=== PATIENT | female | born 1940 | race Caucasian/White ===

== ENCOUNTER 2016-05-16 10:58 | Outpatient (CLI) | payer MEDICARE, BC | END 2016-05-16 10:59 | disposition home or self-care (01) | DX: R73.01 Impaired fasting glucose (principal); Z79.899 Other long term (current) drug therapy; I10 Essential (primary) hypertension; E78.5 Hyperlipidemia, unspecified ==

== ENCOUNTER 2016-07-23 11:33 | Outpatient (CLI) | payer MEDICARE, BC ==
--- NOTE | 2016-07-24 17:40 | Mammography Report ---
DIGITAL SCREENING MAMMOGRAM: 07/23/2016 CLINICAL INDICATION: A 75-year-old for screening. COMPARISON: 05/2014, 11/2012, 11/2011, 11/2010, 10/2009, 01/2008. TECHNIQUE: Routine CC and MLO projections were obtained of the breasts. FINDINGS: Parenchymal tissue within the breasts is predominantly fatty replaced. There are no domina nt masses, suspicious microcalcifications, or secondary signs of malignancy. In comparison to the pre vious studies, there are no significant changes. IMPRESSION: NO MAMMOGRAPHIC EVIDENCE OF MALIGNANCY. NO SIGNIFICANT INTERVAL CHANGES. RECOMMENDATION: Screening mammography is recommended annually. BI-RADS category 1 - negative. STANDARD QUALIFYING STATEMENTS 1. This examination was reviewed with the aid of Computed-Aided Detection (CAD). 2. A negative or benign imaging report should not delay biopsy if clinically suspicious findings are present. Consider surgical consultation if warranted. More than 5% of cancers are not identified by i maging. 3. Dense breasts may obscure an underlying neoplasm. JOB #: [id number] EXT JOB #:[id number]
== END 2016-07-23 11:34 | disposition home or self-care (01) ==
LOC: DI 11:33
PROVIDERS: ATTEND Nurse Practitioner Primary Care
DX: Z12.31 Encounter for screening mammogram for malignant neoplasm of breast (principal)
CPT/HCPCS: 77067

== ENCOUNTER 2016-08-29 09:02 | Outpatient (CLI) | payer MEDICARE, BC | END 2016-08-29 09:03 | disposition home or self-care (01) | DX: M17.11 Unilateral primary osteoarthritis, right knee (principal); M11.261 Other chondrocalcinosis, right knee; M25.561 Pain in right knee ==

== ENCOUNTER 2016-09-04 09:17 | Outpatient (CLI) | payer MEDICARE, BC | END 2016-09-04 09:18 | disposition home or self-care (01) | DX: M11.20 Other chondrocalcinosis, unspecified site (principal); E83.42 Hypomagnesemia; M25.551 Pain in right hip ==

== ENCOUNTER 2016-09-04 09:44 | Outpatient (CLI) | payer MEDICARE, BC | END 2016-09-04 09:45 | disposition home or self-care (01) | DX: M71.20 Synovial cyst of popliteal space [Baker], unspecified knee (principal); M25.551 Pain in right hip; E83.42 Hypomagnesemia; M16.11 Unilateral primary osteoarthritis, right hip ==

== ENCOUNTER 2016-11-07 08:54 | Outpatient (CLI) | payer MEDICARE, BC ==
[2016-11-07] MEDS ORDERED: BUPIVACAINE 0.25% PF 10 ML VIAL SUBQ ONE (10:55)
[2016-11-07] MEDS ORDERED: IOTHALAMATE MEGLUMINE 50 ML VIAL IVP ONE (10:55)
[2016-11-07] MEDS ORDERED: BUFFERED LIDOCAINE 10 ML SYRINGE IU ONE (10:55)
[2016-11-07] MEDS ORDERED: methylPREDNISolone ACETATE 80 MG/ML VIAL IM ONE (10:55)
--- NOTE | 2016-11-07 12:19 | XRAY Report ---
FLUOROSCOPICALLY GUIDED RIGHT HIP INJECTION WITH STEROIDS: 11/07/2016 CLINICAL INDICATION: Right hip arthritis. FINDINGS: Following obtaining informed consent, the patient's right hip was prepped and draped in the usual sterile fashion. The skin and soft tissues were anesthetized with lidocaine. A spinal needle was inserted into the right hip joint, and following confirmation of needle positioning, 1 mL of 80 mg/mL of Depo-Medrol and 1 mL of 0.25% Marcaine were injected intraarticularly. The patient tolerated the procedure well. No immediate complications. IMPRESSION: SUCCESSFUL RIGHT HIP INJECTION WITH STEROIDS UNDER FLUOROSCOPY. FLUOROSCOPY TIME: 29 SECONDS; 1 SPOT IMAGE OBTAINED. JOB #: [id number] EXT JOB #: [id number] JENIFER
== END 2016-11-07 08:55 | disposition home or self-care (01) ==
LOC: DI 08:54
PROVIDERS: ATTEND Orthopaedic Surgery
DX: M16.11 Unilateral primary osteoarthritis, right hip (principal)
CPT/HCPCS: 20610; 77002; Q9961

== ENCOUNTER 2017-02-16 20:15 | Emergency (ER) | payer MEDICARE, BC ==
--- NOTE | 2017-02-16 20:50 | ED Physician Documentation ---
History of Present Illness - Stated complaint Stated Complaint: RIGHT LEG REDNESS - Chief complaint Chief Complaint: Ext Problem - History obtained from History obtained from: Patient, Family - History of Present Illness Timing: Today, How many hours ago (3) Pain level max: 3 Pain level now: 3 Improved by: nothing Worsened by: nothing - Additonal information Additional information: Patient is 4 days s/p R THR at [facility]. Tonight noticed redness to the lateral aspect of the R thigh. Review of Systems Constitutional: denies: Fever, Chills Cardiac: denies: Chest pain / pressure Respiratory: denies: Dyspnea GI: denies: Abdominal Pain, Nausea, Vomiting Skin: denies: Rash Musculoskeletal: denies: Neck pain, Back pain Neurologic: denies: Headache PD PAST MEDICAL HISTORY - Past Medical History Cardiovascular: Hypertension, High cholesterol Respiratory: None Neuro: None Endocrine/Autoimmune: None GI: GERD : None HEENT: None Psych: Claustrophobia Musculoskeletal: Osteoarthritis Derm: None - Past Surgical History Past Surgical History: Yes General: Colonoscopy Ortho: Knee replacement, Arthroscopic surgery, Carpal Tunnel surgery, Spine surgery, Other HEENT: Tonsil/Adenoidectomy - Present Medications Home Medications: Ambulatory Orders Medication Instructions Recorded Confirmed Aspirin EC [Ecotrin] 81 mg PO DAILY 02/09/13 02/16/17 Atorvastatin Calcium 20 mg PO QPM 02/09/13 02/16/17 Furosemide 20 mg PO QAM 02/09/13 02/16/17 Metoprolol Succinate [Toprol Xl] 25 mg PO QAM 02/09/13 02/16/17 Multivitamin [Multivitamins] 1 each PO QAM 02/09/13 02/16/17 Spironolactone [Aldactone] 25 mg PO BID 02/09/13 02/16/17 Vitamin B Complex 1 each PO QAM 02/09/13 02/16/17 cloNIDine [Catapres] 0.2 mg PO DAILY 02/09/13 02/16/17 Rivaroxaban [Xarelto] 10 mg PO DAILY 02/16/17 02/16/17 hydrOXYzine PAMOATE [Vistaril] 25 mg PO Q6HR 02/16/17 02/16/17 traMADol [Ultram] 50 mg PO Q6HR 02/16/17 02/16/17 - Allergies Allergies/Adverse Reactions: Allergies Allergy/AdvReac Type Severity Reaction Status Date / Time amlodipine besylate * Allergy Intermediate Edema Verified 02/16/13 02:41 [From Norvasc] hydrocodone [Hydrocodone] Allergy Unknown UNKNOWN Verified 02/16/13 02:41 isosorbide [Isosorbide] Allergy ANKLE Verified 02/16/13 02:41 SWELLING sulfisoxazole AdvReac Unknown Verified 02/08/16 09:15 [From Gantrisin] sulfisoxazole acetyl * AdvReac Unknown Verified 02/08/16 09:15 [From Gantrisin] - Social History Does the pt smoke?: No Smoking Status: Never smoker Does the pt drink ETOH?: No Does the pt have substance abuse?: No - Immunizations Immunizations are current?: Yes - POLST Patient has POLST: No PD ED PE NORMAL - Vitals Vital signs reviewed: Yes - General General: Alert and oriented X 3, No acute distress - Derm Derm: Warm and dry - Extremities Extremities: Other (R hip - Incision is clean dry and intact. No drainage. There is a little light pink areas around the incision and on the proximal aspect of the thigh. There is no warmth. No significant tenderness. Blanches easily.) - Neuro Neuro: Alert and oriented X 3 - Psych Psych: Normal mood, Normal affect Results - Vitals Vitals: Vital Signs - 24 hr 02/16/17 02/16/17 02/16/17 20:24 21:46 22:55 Temperature 37 C 37.1 C Heart Rate 101 H 74 82 Respiratory 18 16 18 Rate Blood Pressure 132/80 H 121/75 116/66 O2 Saturation 96 98 99 Oxygen O2 Source Room air - Labs Labs: Laboratory Tests 02/16/17 02/16/17 02/16/17 20:56 20:56 20:56 WBC 6.8 RBC 3.76 L Hgb 11.4 L Hct 34.0 L MCV 90.4 MCH 30.4 MCHC 33.6 RDW 13.5 Plt Count 253 MPV 8.5 Neut # 4.3 Lymph # 1.4 L Otero # 0.8 Eos # 0.2 Baso # 0.0 Absolute Nucleated RBC 0.00 Nucleated RBC % 0.0 ESR 119 H Sodium 135 Potassium 3.8 Chloride 99 L Carbon Dioxide 24 Anion Gap 12.0 BUN 13 Creatinine 0.8 Estimated GFR (MDRD) 70 L Glucose 126 H Calcium 8.6 C-Reactive Protein 19.3 H PD MEDICAL DECISION MAKING - ED course Complexity details: reviewed results, re-evaluated patient, considered differential, d/w patient, d/w family, d/w [facility] [place] consultant (Dr. Osborne ([facility]) [id number] - recommends follow up in clinic for wound check. No abx at this time. ) ED course: Patient is a 76-year-old female who is 4 days status post a right total hip replacement. Her incision is clean dry and intact without signs of infection. She does have a light pink redness to the proximal thigh, is not warm, is not tender. Does not appear consistent with cellulitis. Possible seroma underneath the soft tissue versus increasing use at home? Normal white count. Afebrile. Sed rate and CRP are both elevated, but may be related to her recent surgery. Discussed the case with orthopedics from [facility] and they will follow her up in the clinic. Do not want to start antibiotics at this time and I think this is reasonable in her case. Patient and family counseled regarding signs and symptoms for which I believe and urgent re-evaluation would be necessary. Patient with good understanding of and agreement to plan and is comfortable going home at this time This document was made in part using voice recognition software. While efforts are made to proofread this document, sound alike and grammatical errors may occur. Departure - Departure Disposition: 01 Home, Self Care Clinical Impression: Encounter for postoperative wound check Condition: Good Instructions: ED Wound Check Post Op No Infec Follow-Up: Gaudencio Tipton DO [Physician No Access] - Within 3 Days Comments: Call Dr. Tipton's office on Saturday for a wound check early next week. Return if you worsen. Discharge Date/Time: 02/16/17 22:56
[2017-02-16 21:04] LABS: BASOPHILS % (AUTO) 0.3 %; EOSINOPHILS # (AUTO) 0.2 10^3/uL (0.0-0.7); EOSINOPHILS % (AUTO) 2.5 %; HGB - HEMOGLOBIN 11.4 g/dL (12.0-16.0); LYMPHOCYTES # (AUTO) 1.4 10^3/uL (1.5-3.5); LYMPHOCYTES % (AUTO) 21.3 %; MEAN CORPUSCULAR HEMOGLOBIN 30.4 pg (27.0-31.0); MEAN CORPUSCULAR HGB CONC 33.6 g/dL (32.0-36.0); MEAN CORPUSCULAR VOLUME 90.4 fL (81.0-99.0); MEAN PLATELET VOLUME 8.5 fL (7.9-10.8); MONOCYTES # (AUTO) 0.8 10^3/uL (0.0-1.0); MONOCYTES % (AUTO) 12.3 %; NEUTROPHILS # (AUTO) 4.3 10^3/uL (1.5-6.6); NEUTROPHILS % (AUTO) 63.6 %; RED BLOOD COUNT 3.76 10^6/uL (4.20-5.40); RED CELL DISTRIBUTION WIDTH 13.5 % (12.0-15.0); UNCORRECTED WHITE BLOOD COUNT 6.8 x10^3/uL; WHITE BLOOD COUNT 6.8 x10^3/uL (4.8-10.8)
[2017-02-16 21:37] LABS: CALCIUM 8.6 mg/dL (8.5-10.3); CREATININE 0.8 mg/dL (0.4-1.0); POTASSIUM 3.8 mmol/L (3.5-5.0)
[2017-02-16 22:56] VITALS: BP 116/66
== END 2017-02-16 22:56 | disposition home or self-care (01) ==
LOC: ED 20:15
DX: L53.9 Erythematous condition, unspecified (principal); I10 Essential (primary) hypertension; E78.00 Pure hypercholesterolemia, unspecified; Z96.641 Presence of right artificial hip joint; Z96.659 Presence of unspecified artificial knee joint; Z79.82 Long term (current) use of aspirin
CPT/HCPCS: 36415; 80048; 85025; 85651; 86140; 99283

== ENCOUNTER 2017-09-24 10:16 | Outpatient (CLI) | payer MEDICARE, BC ==
--- NOTE | 2017-09-25 17:28 | Mammography Report ---
DIGITAL SCREENING MAMMOGRAM: 09/24/2017 CLINICAL INDICATION: A 76-year-old for screening. COMPARISON: 07/2016, 05/2014, 11/2012, 11/2011, 11/2010, 10/2009. TECHNIQUE: Routine CC and MLO projections were obtained of the breasts. FINDINGS: Parenchymal tissue within the breasts is predominantly fatty replaced. There are no dominant masses, suspicious microcalcifications, or secondary signs of malignancy. In comparison to the previous studies, there are no significant changes. IMPRESSION: NO MAMMOGRAPHIC EVIDENCE OF MALIGNANCY. NO SIGNIFICANT INTERVAL CHANGES. RECOMMENDATION: Screening mammography is recommended annually. BIRADS category 1 - negative. STANDARD QUALIFYING STATEMENTS: 1. This examination was reviewed with the aid of Computed-Aided Detection (CAD). 2. A negative or benign imaging report should not delay biopsy if clinically suspicious findings are present. Consider surgical consultation if warranted. More than 5% of cancers are not identified by imaging. 3. Dense breasts may obscure an underlying neoplasm. TD: 09/25/2017 15:23
== END 2017-09-24 10:17 | disposition home or self-care (01) ==
LOC: DI.S 10:16
PROVIDERS: ATTEND Internal Medicine
DX: Z12.31 Encounter for screening mammogram for malignant neoplasm of breast (principal)
CPT/HCPCS: 77067

== ENCOUNTER 2017-10-23 10:05 | Outpatient (CLI) | payer MEDICARE, BC ==
--- NOTE | 2017-10-24 07:41 | XRAY Report ---
Procedure Date: 10/23/2017 Accession Number: [id number] / [id number] Procedure: XR - Finger(s) RT CPT Code: FULL RESULT: EXAM: RIGHT THIRD DIGIT RADIOGRAPHY EXAM DATE: 10/23/2017 10:35 AM. CLINICAL HISTORY: Right middle finger pain. No known injury or trauma. COMPARISON: None. TECHNIQUE: 2 views. FINDINGS: Bones: Normal. No fracture or bone lesion. Joints: No subluxation. There is minimal marginal osteophyte formation at the distal interphalangeal joint. Soft Tissues: There is mild soft tissue swelling centered around the proximal interphalangeal joint. IMPRESSION: 1. No acute osseous abnormality. There is mild degenerative change at the distal phalangeal joint. 2. Mild soft tissue swelling centered around the proximal interphalangeal joint. RADIA
== END 2017-10-23 10:06 | disposition home or self-care (01) ==
LOC: DI 10:05
PROVIDERS: ATTEND Nurse Practitioner Primary Care
DX: M19.041 Primary osteoarthritis, right hand (principal); M25.441 Effusion, right hand
CPT/HCPCS: 73140

== ENCOUNTER 2018-11-06 08:40 | Outpatient (CLI) | payer MEDICARE, BC ==
--- NOTE | 2018-11-06 09:15 | XRAY Report ---
Reason: CERVICALGIA Procedure Date: 11/06/2018 Accession Number: [id number] / [id number] Procedure: XR - Cervical Spine 2 View CPT Code: FULL RESULT: EXAM: CERVICAL SPINE RADIOGRAPHY EXAM DATE: 11/06/2018 08:53 AM. CLINICAL HISTORY: Increased pain, left side. COMPARISONS: XR CERVICAL SPINE MIN 4 VIEWS 01/04/2011 2:13 PM. TECHNIQUE: 3 views. FINDINGS: Alignment: No spondylolisthesis or scoliosis. Bones: The cervical vertebral bodies and posterior elements are well visualized from the skull base through C7-T1. Interval surgical changes with anterior fusion between C3-C5. No evidence for hardware loosening. No fractures or bone lesions. Disks/Facets: Degenerative changes at C2-C3, C4-C5, C5-C6 and C6-C7 with narrowing, subchondral sclerosis and osteophytic formation, stable. Soft Tissues: The prevertebral tissues are within normal limits. Mild scarring both lung apices. IMPRESSION: 1. Interval anterior fusion C3-C5. No evidence for hardware loosening. 2. Degenerative disk and facet disease. No acute fracture or malalignment. RADIA
== END 2018-11-06 08:41 | disposition home or self-care (01) ==
LOC: DI 08:40
PROVIDERS: ATTEND Registered Nurse
DX: M50.31 Other cervical disc degeneration, high cervical region (principal); Z98.1 Arthrodesis status
CPT/HCPCS: 72040

== ENCOUNTER 2020-11-24 07:20 | Outpatient (CLI) | payer MEDICARE, BC ==
[2020-11-24 15:23] LABS: ALBUMIN 3.9 g/dL (3.2-5.5); ALBUMIN/GLOBULIN RATIO 1.3 (1.0-2.2); BILIRUBIN,TOTAL 1.1 mg/dL (0.2-1.0); CALCIUM 8.7 mg/dL (8.5-10.3); CREATININE 0.9 mg/dL (0.4-1.0); POTASSIUM 4.2 mmol/L (3.5-5.0); TOTAL PROTEIN 6.9 g/dL (6.7-8.2)
== END 2020-11-24 07:21 | disposition home or self-care (01) ==
LOC: LAB.S 07:20
PROVIDERS: ATTEND Registered Nurse
DX: I10 Essential (primary) hypertension (principal)
CPT/HCPCS: 36415; 80053

== ENCOUNTER 2020-11-29 08:32 | Outpatient (CLI) | payer MEDICARE, BC ==
[2020-11-29 16:11] LABS: CHOL/HDL RATIO 3.4 (<4.4); CHOLESTEROL 179 mg/dL; HDL CHOLESTEROL 52 mg/dL; LDL CHOLESTEROL,CALCULATED 107 mg/dL; LDL/HDL RATIO 2.1 (<4.4); TRIGLYCERIDES 98 mg/dL; VLDL CHOLESTEROL 20 mg/dL
[2020-11-29 20:30] LABS: ESTIMATED AVERAGE GLUCOSE 111 mg/dL (70-100); HEMOGLOBIN A1c% 5.5 % (4.27-6.07)
== END 2020-11-29 08:33 | disposition home or self-care (01) ==
LOC: LAB.S 08:32
PROVIDERS: ATTEND Registered Nurse
DX: E78.5 Hyperlipidemia, unspecified (principal); R73.01 Impaired fasting glucose
CPT/HCPCS: 36415; 80061; 83036; 83721